=== PATIENT | female | born 1995 | race Caucasian/White ===

== ENCOUNTER 2017-12-21 12:29 | Emergency (ER) | payer MEDICAID ==
[~2017-12-21] VITALS: Ht 165.1 cm; Wt 105.9 kg
[~2017-12-21 12:29] MED LIST: IBUP-2070 PO; PENI250T3 PO; PENI500T2 PO
[2017-12-21] MEDS ORDERED: KETOROLAC TROMETHAMINE 60 MG/2 ML VIAL IM ONE (15:00)
[2017-12-21 15:15] VITALS: BP 128/77
== END 2017-12-21 16:12 | disposition home or self-care (01) ==
LOC: EMS 12:31
DX: K02.9 Dental caries, unspecified (principal)
CPT/HCPCS: 96372; 99283; J1885